=== PATIENT | male | born 1965 | race Two or more races ===

== ENCOUNTER 2021-12-28 18:03 | Emergency (ER) | payer SELFPAY ==
[~2021-12-28] VITALS: Ht 182.9 cm; Wt 100.0 kg
[2021-12-28] MEDS ORDERED: MORPHINE SULFATE 4 MG/ML CPJ (NOT FOR IM USE) IV STA (19:22)
[2021-12-28] MEDS ORDERED: ONDANSETRON 4MG ODT PO STA (19:22)
[2021-12-28] MEDS ORDERED: LIDOCAINE HCL/EPINEPHRINE 1%-EPI 1:100,000 20 ML VIAL INFIL ONE ×2 (19:30→21:00)
[2021-12-28] MEDS ORDERED: TETANUS, DIPHTHERIA, PERTUSSIS VAC/PF 0.5ML (>10YR OLD) IM ONE ×2 (19:30→22:22)
[2021-12-28] MEDS ORDERED: SODIUM CHLORIDE 0.9% 1,000 ML IV ONE (19:30)
[2021-12-28 19:50] LABS: BASOPHILS % 0.6 % (0.0-2.0); HEMATOCRIT. 41.4 % (42.0-52.0); HEMOGLOBIN. 14.5 g/dL (14.0-18.0); LYMPHOCYTES % 13.7 % (20.0-50.0); MEAN CORPUSCULAR HEMOGLOBIN 34.7 pg (28.0-32.0); MEAN CORPUSCULAR VOLUME 98.7 fL (80.0-94.0); MEAN PLATELET VOLUME 7.7 fl (7.4-10.4); MONOCYTES % 6.3 % (2.0-8.0); NEUTROPHILS % 79.4 % (40.0-76.0); PLATELET 154 x1000/uL (130-400); RED BLOOD CELL COUNT 4.19 mill/uL (4.7-6.1); RED CELL DISTRIBUTION WIDTH 14.4 % (11.6-14.6)
[2021-12-28 19:57] LABS: CHLORIDE 99 mEq/L (98-107)
[2021-12-28] MEDS ORDERED: MORPHINE SULFATE 4 MG/ML CPJ (NOT FOR IM USE) IV SCH (20:45)
[2021-12-28] MEDS ORDERED: ONDANSETRON 4MG ODT PO SCH (20:45)
[2021-12-28] MEDS ORDERED: IBUP-2028 MT (22:35)
[2021-12-28 23:00] VITALS: BP 121/74
== END 2021-12-28 23:13 | disposition home or self-care (01) ==
LOC: ER 18:03
DX: S01.01XA Laceration without foreign body of scalp, initial encounter (principal); S93.491A Sprain of other ligament of right ankle, initial encounter; M25.552 Pain in left hip; F10.129 Alcohol abuse with intoxication, unspecified; X58.XXXA Exposure to other specified factors, initial encounter; Y93.89 Activity, other specified; Y92.89 Other specified places as the place of occurrence of the external cause; Y99.8 Other external cause status
CPT/HCPCS: 12004; 36415; 70450; 71045; 73521; 73610; 80053; 80320; 85025; 90471; 90715; 96361; 96374; 99285; J2270; J3490; J7030; Q0162; Z7610; G0480